=== PATIENT | male | born 1995 | race Caucasian/White ===

== ENCOUNTER 2024-02-20 08:49 | Outpatient (AMB) | payer OTHER, SELFPAY ==
--- NOTE | 2024-02-20 08:50 | MHC.OFFWIV ---
Intake Vital Signs 02/20/24 08:51 Height 6 ft 1 in Weight 200 lb BMI 26.4 BP 132/84 Blood Pressure Location Rt brachial Position Sitting Pulse 70 Pulse Source Pulse Oximeter Temp 97.7 F Temp Source Temporal Artery Scan Pulse Oximetry (%) 99 Oxygen Delivery Method Room Air Intake Visit Reasons: EP Asthma Intake Note: pt c/o asthma exacerbation. Ongoing for roughly 2 weeks Patient Tobacco Use Status: Former Tobacco user Allergies cat dander Allergy (Intermediate, Verified 02/20/24 08:55) Itchy Eyes Do you need a note to return to daycare/school/sports/work: Yes HPI HPI Comments History of Present Illness Details This is a 28-year-old male who presented to the walk-in clinic complaining of shortness of breath in the morning. Patient states this has been going on for the past 1-2 weeks. He states this typically happens in the summer with the extreme heat and typically he will utilize his rescue inhaler with significant improvement; however, he believes he left his inhaler in [place] back in September so he has been without his inhaler since then. He states he feels slightly short of breath when he wakes up in the morning; however, he feels okay during the day. He denies any cough or fever/chills. He denies any wheezing. Patient states he is here for a refill on his albuterol inhaler. [facility] Social History Patient Tobacco Use Status: Former Tobacco user Review of Systems Const All systems reviewed & are unremarkable except as noted in HPI and below Reports no additional complaints Eyes Reports no additional complaints ENT Reports no additional complaints Card Reports no additional complaints Resp Reports no additional complaints GI Reports no additional complaints Reports no additional complaints Musc Reports no additional complaints Skin/Breast Reports system reviewed and no additional complaints, except as documented Neuro Reports no additional complaints Psych Reports no additional complaints Endo Reports no additional complaints Juan/Lymph Reports no additional complaints Aller/Immun Reports no additional complaints Physical Exam Const Other: Vital signs reviewed. Constitutional: Non-toxic appearing. No acute distress. Well-developed and well-nourished. HEENT: Normocephalic and atraumatic. Skin: Warm and dry. No rashes or lesions noted. Neck: Full and painless range of motion. No cervical lymphadenopathy. Cardio: Regular rate and rhythm. No murmurs, gallops, or rubs. No lower extremity edema. No JVD. Pulmonary: No respiratory distress. No accessory muscle usage. Clear to auscultation bilaterally without wheezing, crackles, or rhonchi. Gastrointestinal: Soft, nontender, and nondistended in all 4 quadrants. Musculoskeletal: Normal range of motion in joints throughout the body. No deformity or other signs of injury. Neuro: Alert and oriented x4. Cranial nerves 2-12 grossly intact. No focal deficits appreciated. Psych: Normal mood and affect. Assessment & Plan Assessment & Plan (1) Mild intermittent asthma in adult without complication: Code(s): J45.20 - Mild intermittent asthma, uncomplicated Plan: This is a 28-year-old male with past medical history significant for mild intermittent asthma who presented to the walk-in clinic requesting a refill on his albuterol inhaler. He states he he left his inhaler in [place] back in September so he has been without it since then. He has been waking up with mild shortness of breath and typically his albuterol inhaler would fix this. He denies any cough or fever/chills. He has no expiratory wheezing on physical examination to suggest acute asthma exacerbation. His vital signs are stable and he is maintaining oxygen saturations on room air. Patient was given a refill of his albuterol inhaler. He was instructed to follow up with his primary care physician for further refills. He was advised to follow-up here or proceed to the emergency room if he were to develop worsening shortness of breath, cough, fever/chills, or wheezing. Patient verbalizes understanding and he is in agreement with the plan. Medications: New albuterol sulfate 90 mcg/actuation 1 inh inhalation QID PRN 8.5 grams 0RF shortness of breath or wheezing inhalational spacing device (Aerochamber MV spacer) As directed 10 ea 0RF Coding Level of Care Code Est Pt Level 3 (55199) Diagnoses Mild intermittent asthma in adult without complication J45.20
[2024-02-20 08:51] VITALS: BP 132/84; PULSE 70; TEMP 36.5; O2SAT 99; BMI 26.4
== END 2024-02-20 09:36 | disposition home or self-care (01) ==
PROVIDERS: PCP Internal Medicine; Visit Provider Physician Assistant Medical
DX: J45.20 Mild intermittent asthma, uncomplicated (principal)
CPT/HCPCS: 99213

== ENCOUNTER 2025-05-03 14:15 | Outpatient (REF) | payer OTHER, SELFPAY ==
[2025-05-03 18:05] LABS: MANUAL DIFF FLAG NO
[2025-05-03 18:25] LABS: Appearance Urine Cloudy; Glucose Urine UA Negative (Negative); PH 8.0 (5.0-9.0); Specific Gravity - Urine 1.020 (1.005-1.025)
[2025-05-03 18:34] LABS: Hematocrit 44.9 % (42.0-52.0); Hemoglobin 15.6 g/dl (14.0-18.0); Imm Gran Abs Auto 0.02 X10*3/uL (0.00-0.03); Imm Gran Pct Auto 0.4 % (0.0-0.4); Lymphocytes Absolute Auto 1.9 X10*3/uL (1.2-4.9); Mean Corpuscular HGB Conc 34.7 g/dl (31.0-36.0); Mean Corpuscular Hemoglobin 30.5 pg (27.0-33.0); Mean Corpuscular Volume 87.7 fL (80.0-98.0); NRBC Abs Auto 0.000 X10*3/uL (0.0-0.012); NRBC Pct Auto 0.0 /100WBC (0.0-0.2); Platelet Count 239 X10*3/uL (160-400); Red Blood Count 5.12 X10*6/uL (4.60-5.80); White Blood Count 5.7 X10*3/uL (4.8-10.8)
[2025-05-03 18:39] LABS: Alanine Aminotransferase 21 U/L (0-40); Albumin Level 4.6 g/dL (3.5-5.0); Alkaline Phosphatase 57 U/L (39-117); Anion Gap 9 (12-20); Aspartate Amino Transferase 32 U/L (5-37); Blood Urea Nitrogen 10 mg/dL (9-16); Calcium 8.8 mg/dL (8.4-10.2); Carbon Dioxide 28 mmol/L (22-29); Chloride 107 mmol/L (96-108); Cholesterol 139 mg/dL (<200); Estimated Glomerular Filt Rate > 60; HDL Cholesterol 47 mg/dL (>40); Potassium 3.4 mmol/L (3.3-5.1); Sodium 141 mmol/L (135-145); Total Protein 7.0 g/dL (6.5-8.0); Triglycerides 122 mg/dL (<150)
[2025-05-03 19:06] LABS: Folate 8.1 ng/mL (> or = 4.0); Vitamin B12 427 pg/mL (200-900)
[2025-05-04 03:35] LABS: HBS Num1 0.23 mIU/mL (0-7.99); HIV Num 1 0.07 S/CO (0.00-0.99); ~HepC Num1 0.06 S/CO (0.00-0.79); ~Hepatitis B Surface Antibody NONREACTIVE (Nonreactive); ~Hepatitis C Antibody Nonreactive (Nonreactive)
[2025-05-04 03:36] LABS: HBsAGNum1 0.65 S/CO (0.00-0.99); Hepatitis B Surface Antigen Negative (Negative)
[2025-05-04 05:33] LABS: Total Hemoglobin (HGBA1C) 3940.4464 umol/L
[2025-05-07 13:29] LABS: VITAMIN D (1,25 OH) D3 46 pg/mL; Vit D (1,25-Dihydroxy) Total 46 pg/mL (18-72); Vitamin D (1,25 OH) D2 <8 pg/mL
== END 2025-05-03 14:16 | disposition home or self-care (01) ==
LOC: HO.HKASLDS 14:15
PROVIDERS: PCP Internal Medicine; Visit Provider Student in an Organized Health Care Education/Training Program
DX: J45.20 Mild intermittent asthma, uncomplicated (principal); H61.23 Impacted cerumen, bilateral; L65.9 Nonscarring hair loss, unspecified; R07.9 Chest pain, unspecified; R00.2 Palpitations; F12.90 Cannabis use, unspecified, uncomplicated; Z87.891 Personal history of nicotine dependence; Z13.1 Encounter for screening for diabetes mellitus
CPT/HCPCS: 36415; 80053; 80061; 81003; 82607; 82652; 82746; 83036; 85025; 86706; 86803; 87340; 87389; 96127

== ENCOUNTER 2025-05-03 14:15 | Outpatient (AMB) | payer OTHER, SELFPAY ==
--- NOTE | 2025-05-03 14:28 | A.OFFPC_ITS ---
Vital Signs 05/03/25 14:35 Height 6 ft 0.05 in Weight 200 lb BMI 27.1 Blood Pressure Location Rt brachial Position Sitting Pulse 78 Pulse Source Pulse Oximeter Temp 98.4 F Temp Source Oral Pulse Oximetry (%) 98 Oxygen Delivery Method Room Air Intake Visit Reasons: NEW PATIENT -heart palpations Intake Note: During running he has been experiencing chest discomfort. Has hx of asthma Accompanied by: Self / Same As Patient Allergies cat dander Allergy (Intermediate, Verified 05/03/25 14:28) Itchy Eyes Tobacco use date assessed: 05/03/25 Dental Screening Dental Screen Date: 05/03/25 Did you have a dental visit in the last 12 months?: Yes HPI HPI Comments History of Present Illness Details Consent Patient was informed and verbally consented to the use of an ambient scribe for clinic note documentation during this visit. History of Present Illness The patient is a 29-year-old male presenting for a wellness visit and to establish care. Asthma: - The patient reports using an inhaler a s needed for asthma, with no hospitalizations for asthma attacks. - He experiences difficulty breathing at times, which is relieved by the inhaler. Ear wax accumulation: - Ear wax accumulation was noted during the examination, and ear drops were recommended to help clear it. Hair loss: - The patient reports hair thinning and a receding hairline, with a family history of hair changes but not significant hair loss. Exercise-induced palpitations: - The patient experiences palpitations a nd dizziness during intense physical exertion, which resolve with rest. - He maintains a regular exercise routin e but notes these symptoms only occur with high-intensity activities. Smoking history: - The patient has a history of smoking c igarettes and vaping, now limited to occasional use during social events. - He currently smokes marijuana but is a dvised against smoking due to asthma. Review of Systems - Respiratory: Reports dyspnea during as thma episodes. Denies chronic cough or wheezing. - Cardiovascular: Reports palpitations d uring intense exercise. Denies chest pain or syncope. - Neurological: Denies headaches or dizz iness outside of exercise-induced episodes. 10-point ROS reviewed and negative excep t as noted in HPI Past Medical History - Asthma, managed with as-needed inhaler use - Family history of hypertension and str ludy Health Maintenance - Comprehensive metabolic panel, lipid p jose, and STI screening planned for baseline health assessment - Advised to avoid smoking due to asthma and potential risk of COPD Physical Exam General: Well-appearing, in no acute distress. Vital signs: Within normal limits. HEENT: Normocephalic, atraumatic. PERRLA, EOMI. Conjunctiva clear, sclera anicteric. Oropharynx clear, mucous membranes moist. TMs intact bilaterally with ear wax noted. Debrox drops prescribed for ear wax removal. Neck: Supple, no lymphadenopathy, no thyromegaly, no JVD or carotid bruits. Cardiovascular: RRR, normal S1/S2, no murmurs, rubs, or gallops. Peripheral pulses 2+ and symmetric. No edema. Respiratory: Lungs clear to auscultation bilaterally, no wheezes, rales, or rhonchi. Normal effort. Abdomen: Soft, non-tender, non-distended. Normoactive bowel sounds. No hepatosplenomegaly, no masses. MSK: Full range of motion, no joint swelling or deformity. Normal gait. Skin: Warm, dry, intact. No rashes, lesions, or pallor. Neuro: Alert and oriented x3. Cranial nerves II-XII intact. Strength 5/5 through out. Sensation intact. Reflexes 2+ symmetric. Normal coordination and gait. Psych: Appropriate mood and affect. Normal judgment and insight. Plan 1. Asthma - Continue using inhaler as needed. Refi ll provided. 2. Ear Wax Accumulation - Prescribed ear drops to be used twice daily to clear ear wax. 3. Hair Loss - Consideration of minoxidil and finaste ride after lab results are reviewed. 4. Exercise-Induced Palpitations - Advised to monitor symptoms and focus on gradual increase in cardiovascular fitness. 5. Smoking History - Advised to avoid smoking, especially d ue to asthma and potential risk of COPD. Discussion Notes I discussed with the patient the importance of regular health check-ups and preventative screenings, including a comprehensive metabolic panel and STI screening. We talked about the risks associated with smoking, especially given his asthma, and I advised him to consider alternatives to smoking marijuana. We also discussed the potential use of minoxidil and finasteride for hair loss, pending lab results. Follow-up was planned in two weeks to review lab results and discuss further management. Patient Instructions - Use ear drops as prescribed to clear e ar wax. - Continue using inhaler as needed for a sthma symptoms. - Avoid smoking to reduce risk of COPD a nd manage asthma. - Follow up in two weeks to review lab r esults and discuss hair loss treatment options. Medical Decision Making The patient presented for a wellness visit to establish care. Given his asthma, a refill for his inhaler was provided. Ear wax accumulation was addressed with ear drops. Exercise-induced palpitations were discussed, and reassurance was provided. Smoking cessation was emphasized due to the risk of COPD. Hair loss treatment options were considered, pending lab results. The plan includes comprehensive lab work to establish a health baseline and follow-up in two weeks. Total time spent caring for the patient today was 30 minutes. This includes time spent before the visit reviewing the chart, time spent documenting, and time spent reviewing laboratory results, diagnostic imaging, medications, performing a medically necessary evaluation, counseling on diagnoses, care coordination, ordering appropriate tests, ordering appropriate medications. [facility], [facility] Family History (Updated 05/03/25 @ 14:29 by Miranda Clemens CMA) Mother No problems noted. Father No problems noted. Social History (Updated 05/03/25 @ 14:29 by Miranda Clemens [facility]) Housing: Condominium Alcohol intake: current Patient Tobacco Use Status: Current everyday Tobacco user service: No Current occupational status: employed Cognitive needs: No Hearing needs: No Vision needs: No Questionnaire PHQ-9 Over the last 2 weeks, how often have you been bothered by any of the following problems? 1. Little interest or pleasure in doing things: not at all 2. Feeling down, depressed, or hopeless: several days 3. Trouble falling or staying asleep, or sleeping too much: not at all 4. Feeling tired or having little energy: several days 5. Poor appetite or overeating: several days 6. Feeling bad about yourself - or that you are a failure or have let yourself or your family down: several days 7. Trouble concentrating on things, such as reading the newspaper or watching television: several days 8. Moving or speaking so slowly that other people could have noticed. Or the opposite - being so fidgety or restless that you have been moving around a lot more than usual: not at all 9. Thoughts that you would be better off or of hurting yourself in some way: not at all Total score: 5 Depression Screening Interpretation: Negative Depression Screening Done: Yes Source: Developed by Drs. Serg Noe, Filipe Miranda and colleagues, with an educational alek from [employer]. Thrive Questionnaire Date Thrive assessed: 05/03/25 I am a: Patient What is your living situation today?: I have a steady place to live Within the past 12 months, did the food you bought not last and you didn't have the money to get more?: Sometimes True Within the past 12 months, did you worry whether your food would run out before you got money to buy more?: Sometimes True Do you have trouble paying for medicines?: Yes Do you have trouble getting transportation to medical appointments?: No Do you have trouble paying your heating and electricity bill?: I choose not to answer this question Do you have trouble taking care of your child, family member or friend?: No Are you currently unemployed and looking for a job?: No Are you interested in more education?: Yes Please select the resources that you would like help with: Education Currently or been in a relationship where the following occur: No concerns reported THRIVE Score: 2 AUDIT C Alcohol Use Questionnaire (AUDIT-C) 1. How often do you have a drink containing alcohol?: 2-3 times a week 2. How many drinks containing alcohol do you have on a typical day when you are drinking?: 3 or 4 3. How often do you have six or more drinks on one occasion?: Monthly Total Score: 6 Score Reviewed/Action Taken: No EDISON-7 AMB Questionnaire EDISON-7 Date EDISON - 7 assessed: 05/03/25 Feeling nervous, anxious, or on edge: 1 = Several days Not being able to stop or control worryin = Several days Worrying too much about different things: 1 = Several days Trouble relaxin = More than half the days Being so restless that it is hard to sit still: 1 = Several days Becoming easily annoyed or irritable: 0 = Not at all Feeling afraid as if something awful might happen: 0 = Not at all Total EDISON-7 score (0-4 normal; 5-9 mild; 10-14 moderate; 15-21 severe): 6 Source: Developed by Dee Carlton Kurt Kroenke and colleagues, with an educational alek from [employer]. Physical exam (Primary Care) Vital Signs: Last Vital Signs Temp 98.4 F 05/03/25 14:35 Pulse 78 05/03/25 14:35 Pulse Ox 98 05/03/25 14:35 Oxygen Delivery Method Room Air 05/03/25 14:35 BMI result Body Mass Index 27.1 Tobacco/Smoking Status: Tobacco use Status Tobacco use date assessed 05/03/25 05/03/25 14:31 Patient Tobacco Use Status Current everyday Tobacco 05/03/25 14:41 PHQ-9: PHQ-9 Score PHQ-9: Total score 5 05/03/25 14:31 Depression Screening Interpretation: Negative Thrive Assessment: Date of Thrive Assessment Date Thrive assessed 05/03/25 05/03/25 14:31 Currently or been in a relationship where the following occur: No concerns reported Coding Level of Care Code New Pt Level 4 (58097) Diagnoses Mild intermittent asthma J45.20 Excessive cerumen in both ear canals H61.23 Hair loss L65.9 Smoking history Z87.891 Palpitations R00.2 Cannabis use disorder F12.90 Assessment & Plan Assessment & Plan (1) Mild intermittent asthma: Code(s): J45.20 - Mild intermittent asthma, uncomplicated (2) Excessive cerumen in both ear canals: Code(s): H61.23 - Impacted cerumen, bilateral (3) Hair loss: Code(s): L65.9 - Nonscarring hair loss, unspecified (4) Smoking history: Code(s): Z87.891 - Personal history of nicotine dependence (5) Palpitations: Code(s): R00.2 - Palpitations (6) Cannabis use disorder: Code(s): F12.90 - Cannabis use, unspecified, uncomplicated Plan Orders: Orders Complete Blood Count Auto Diff Today Z13.9 - Encounter for screening, unspecified Hepatitis B Surface Antibody Today Z13.9 - Encounter for screening, unspecified Lipid Panel Today Z13.9 - Encounter for screening, unspecified UA CC w/rflx Micro + Cult Today Z13.9 - Encounter for screening, unspecified Vitamin B12 and Folate Today Z13.9 - Encounter for screening, unspecified Comprehensive Met. Panel Today Z13.9 - Encounter for screening, unspecified Hemoglobin A1c Today Z13.9 - Encounter for screening, unspecified Hepatitis B Surface Antigen Today Z13.9 - Encounter for screening, unspecified Hepatitis C Antibody Today Z13.9 - Encounter for screening, unspecified HIV Ab/Ag Today Z13.9 - Encounter for screening, unspecified Vitamin D 1,25 dihydroxy Today Z13.9 - Encounter for screening, unspecified Medications: New carbamide peroxide 6.5% (Debrox) 5 drps otic (ears) Q12H 15 mL 0RF 4 days Refilled albuterol sulfate 90 mcg/actuation 1 inh inhalation QID PRN 8.5 grams 0RF shortness of breath or wheezing albuterol sulfate 90 mcg/actuation 1 inh inhalation QID PRN 8.5 grams 0RF shortness of breath or wheezing
[2025-05-03 14:35] VITALS: PULSE 78; TEMP 36.9; O2SAT 98; BMI 27.1
--- OUTSIDE RECORDS SUMMARY | 2025-05-03 17:16 | XMS_ITS | Clinical Summary ---
Author Organization [facility] Address [address] [place] [id number] Phone Care Team Providers Care Core Carrier Name Role Phone Nasim Gil MD Primary Care Provider Allergies No known active allergies Medications Medication Sig Dispense Quantity Refills Last Filled Start D ate End Date Status ALBUTEROL INHL Activ e Social History Tobacco Use Types Packs/Day Years Used Date Smoking Tobacco: Never Smokeless Tobacco: Current Alcohol Use Standard Drinks/Week Comments Yes 0 (1 standard drink = 0.6 oz pur e alcohol) every weekend Education Answer Date Recorded Are you interested in more education? Not on dennis e 11/15/2022 Are you concerned about learning? Not on file 11/15/2022 No 11/15/2022 No 11/15/2022 Digital Access Answer Date Recorded No 12/14/2022 No 12/14/2022 No 12/14/2022 Reliable internet access at home? Not on file 12/14/2022 Device with a working camera? Not on file Sex and Gender Information Value Date Recorded Sex Assigned at Male 09/07/2017 6:07 PM EST Legal Sex Male 5:58 PM EST Gender Identity Male 09/07/2017 6:07 PM EST Sexual Orientation Straight 09/07/2017 6: 07 PM EST Last Filed Vital Signs Vital Sign Reading Time Taken Comments Blood Pressure 123/78 09/07/2017 6:05 PM EST Pulse 59 09/07/2017 6:05 PM EST Temperature 36.7 C (98.1 F) 09/07/2017 6:05 PM EST Respiratory Rate 16 09/07/2017 6:05 PM EST Oxygen Saturation 97% 09/07/2017 6:05 PM EST Inhaled Oxygen Concentration - - Weight 77.1 kg (170 lb) 09/07/2017 6:05 PM EST Height 180.3 cm (5' 11 ) 09/07/2017 6:05 PM EST Body Mass Index 23.71 09/07/2017 6:05 PM EST Plan of Treatment Health Maintenance Due Date Last Done Comments Adult Td,Tdap Booster 1997 DEPRESSION SCREENING 2009 HEPATITIS A VACCINES (2 of 2 - 2-dose series) 08/16/2015 02/13/2015 HEPATITIS C SCREENING 2015 HIV ONE-TIME SCREENING (18-6 5 YEARS) 2015 SMOKING STATUS SCREENING (On ce After 26 Yrs) 2023 INFLUENZA VACCINE (#1) 2025 08/28/2017 COVID-19 VACCINE (2 - 2024-2 6 season) 2025 07/19/2021 MENINGOCOCCAL VACCINES (ACWY) Completed 02/20/2016 MENINGOCOCCAL VACCINES (B) Completed 03/18, 08/28/2017, 06/24/2017 HIB VACCINES Aged Out No longer eligi ble based on patient's age to complete this topic PNEUMOCOCCAL VACCINES (0-49 years) Aged Out No longer eligible b ased on patient's age to complete this topic Medical Devices Not on file Insurance [facility] [employer] POS [employer]MO POS [employer]MO POS [employer]MO POS [employer] HMO POS R[employer] HMO POS Care Teams Core Carrier Relationship Specialty Start Date End Date Nasim Gil MD [address] [place], [place] [address] [id number] PCP - General Pediatrics 09/07/17 Additional Source Comments The information contained in this document represents components of the legal health record. It is not the complete legal health record.[facility]
--- OUTSIDE RECORDS SUMMARY | 2025-05-03 17:16 | XMS_ITS | Clinical Summary ---
Author Organization [facility] Address [address] [place] [address] Phone Care Team Providers Care Billet Heater Name Role Phone Physician, No Pcp Primary Care Provider Unavaila ble Allergies No known active allergies Medical History Medical History Date Comments Asthma Social History Tobacco Use Types Packs/Day Years Used Date Smoking Tobacco: Never Smokeless Tobacco: Never Tobacco Cessation:Counseling Given: Not Answered Alcohol Use Standard Drinks/Week Comments Yes 0 (1 standard drink = 0.6 oz pur e alcohol) socially Sex and Gender Information Value Date Recorded Sex Assigned at Male 02/21/2024 12:15 PM EDT Legal Sex Male 11:35 AM EDT Gender Identity Male 02/21/2024 12:15 PM EDT Sexual Orientation Not on file Obstetrics History Last Filed Vital Signs Vital Sign Reading Time Taken Comments Blood Pressure 132/61 02/21/2024 1:21 PM EDT Pulse 63 02/21/2024 1:21 PM EDT Temperature 37.2 C (99 F) 02/21/2024 11:43 AM EDT Respiratory Rate 18 02/21/2024 1:21 PM EDT Oxygen Saturation 100% 02/21/2024 1:21 PM EDT Inhaled Oxygen Concentration - - Weight 90.7 kg (200 lb) 02/21/2024 11:43 AM EDT Height 182.9 cm (6') 02/21/2024 11:43 AM EDT Body Mass Index 27.12 02/21/2024 11:43 AM EDT Plan of Treatment Health Maintenance Due Date Last Done Comments Pneumococcal Vaccine: Pediatrics (0 to 5 Years) and At-Risk Patients (6 to 49 Years) (1 of 2 - PCV) 2016 Meningococcal B Vaccine (2 of 2 - Trumenba SCDM 2-dose series) 09/17/2018 03/18/2018 DTaP,Tdap,and Td Vaccines (7 - Td or Tdap) 05/29/2020 05/29/2010, 10/08/2001, 03/30/1999, Additional history exists HIV Screening 02/21/2024 Hepatitis C Screening 02/21/2024 Social Influencers of Health Screening 02/21/2024 Depression Screening 07/21/2024 COVID-19 Vaccine ( season) 2025 Influenza Vaccine (#1) 2025 3, 05/26/2012, 04/18/2011 RSV Immunization Adult Patients (1 - 1-dose 75+ series) 2072 Hepatitis B Vaccines Completed 03/28/1998, 1997, 1997 HIB Vaccines Completed 01/17/1999, 02/1998, 01/17/1998, Additional history exists IPV Vaccines Completed 10/08/2001, 09/20, 01/17/1998, Additional history exists MMR Vaccines Completed 10/08/2001, 10/18/1998 Varicella Vaccines Completed 09/21/2008, 10/18/1998 HPV Vaccines Completed 02/13/2015, 12/19, 12/29/2012 Hepatitis A Vaccines Completed 02/13/2015, 01/07/20 14 Meningococcal ACWY Vaccine Completed 02/20/2016, RSV Immunization Patients Under 20 months Aged Out No longer eligible based on patient's age to complete this topic Insurance [facility] Care Teams Billet Heater Relationship Specialty Start Date End Date Physician, No Pcp PCP - General 02/21/24
--- OUTSIDE RECORDS SUMMARY | 2025-05-03 17:16 | XMS_ITS | Encounter Summary ---
Author Organization [facility] Address [address] [place] [phone] Phone Care Team Providers Care Band Saw Operator Name Role Phone Nasim Gil MD Primary Care Provider [phone] Encounter Details Date Type Department Care Team (Late st Contact Info) Description 07/05/2013 Documentation [facility] Family Medicine [address] [place], [place] [phone] Family Medicine, Physician [address] [place], [place] [phone] Social History Tobacco Use Types Packs/Day Years Used Date Smoking Tobacco: Never Assessed Sex and Gender Information Value Date Recorded Sex Assigned at Not on file Legal Sex Male 4:57 PM EDT Gender Identity Not on file Sexual Orientation Not on file documented as of this encounter Plan of Treatment Not on file documented as of this encounter Visit Diagnoses Not on filedocumented in this encounter Care Teams Band Saw Operator Relationship Specialty Start Date End Date Nasim Gil MD [address] [facility] [place] [id number] PCP - General 02/28/17 10/28/22 documented as of this encounter
--- OUTSIDE RECORDS SUMMARY | 2025-05-03 17:16 | XMS_ITS | Encounter Summary ---
Author Organization [facility] Address [address] [place] [address] Phone Care Team Providers Care Quiller Machine Fixer Name Role Phone Nasim Gil MD Primary Care Provider [phone] Encounter Details Date Type Department Care Team (Late st Contact Info) Description 03/21/2010 Documentation [facility] Family Medicine [address] [place], [place] [phone] Family Medicine, Physician [address] [place], [place] [id number] Social History Tobacco Use Types Packs/Day Years [...] on filedocumented in this encounter Care Teams Quiller Machine Fixer Relationship Specialty Start Date End Date Nasim Gil MD [address] [facility] [place] [id number] PCP - General 02/28/17 10/28/22 documented as of this encounter
--- OUTSIDE RECORDS SUMMARY | 2025-05-03 17:16 | XMS_ITS | Encounter Summary ---
Author Organization [facility] Address [address] [place] [id number] Phone Care Team Providers Care Environmental Conflict Manager Name Role Phone Nasim Gil MD Primary Care Provider [phone] Encounter Details Date Type Department Care Team (Late st Contact Info) Description 06/11/2013 Documentation [facility] [place] [address] [place], [place] [id number] Family Medicine, Physician [address] [place], [place] [id number] Social History Tobacco Use Types Packs/Day Years [...] on filedocumented in this encounter Care Teams Environmental Conflict Manager Relationship Specialty Start Date End Date Nasim Gil MD [address] [facility] [place] [address] PCP - General 02/28/17 10/28/22 documented as of this encounter
--- OUTSIDE RECORDS SUMMARY | 2025-05-03 17:16 | XMS_ITS | Encounter Summary ---
Author Organization [facility] Address [address] [place] [id number] Phone Care Team Providers Care Manager Spanish Name Role Phone Nasim Gil MD Primary Care Provider [phone] Encounter Details Date Type Department Care Team (Late st Contact Info) Description 02/13/2015 Documentation [facility] [place] Family Medicine [address] [place], [place] [phone] Family Medicine, Physician [address], [place] [address] Social History Tobacco Use Types Packs/Day Years [...] on filedocumented in this encounter Care Teams Manager Spanish Relationship Specialty Start Date End Date Nasim Gil MD [address] [facility] [place] [address] PCP - General 02/28/17 10/28/22 documented as of this encounter
--- OUTSIDE RECORDS SUMMARY | 2025-05-03 17:16 | XMS_ITS | Clinical Summary ---
Author Organization [facility] Address [address] [place] [id number] Phone Care Team Providers Care Rehab Aid Name Role Phone Unavailable Primary Care Provider Unavailabl e Allergies No known active allergies Medications albuterol HFA 108 (90 Base) MCG/ACT inhaler Inhale 2 puffs every 6 (six) hours as needed for wheezing. Active Active Problems Problem Noted Date Diagnosed Date Mild intermittent asthma without complication Immunizations Immunization Administration Dates Next Due DTaP 5 10/08/2001, 9,03/28/1998,01/17,1997 HPV Vaccine 9 Valent 02/13/2015 HPV, Quadrivalent 01/06/2014,12/29/2012 Hep A, ped/adol 02/13/2015,01/06/2014 Hep B, ped/adol 03/28/1998,1997,1997 Hib (PRP-T) 01/17/1999, 8,01/17/1998,11/14 IPV 10/08/2001, 9,01/17/1998,11/14 Influenza Split 05/26/2012,04/18/2011 Influenza, injectable, quadr ivalent, preservative free 05/25/2013 MMR 10/08/2001,10/18/1998 Meningococcal B Trumenba 03/18/2018 Meningococcal Conj (Menactra) MCV4P 02/20/2016,1 07/29/2009 Tdap 05/29/2010 Varicella 09/21/2008,10/18/1998 Family History Relation Name Status Comments Brother Alive Brother: Asthma Father Father: Aortic regurgitation, Hypertension Maternal Grandmother Materna l grandmother: Diabetes mellitus Mother Mother: Allergi c rhinitis Thyroid deficiency, Mitral valve prolapse Other Family history of *Dental caries, No family history of *Sudden /[place] under 55, Family history of Diabetes mellitus, Family history of Hyperlipidemia, Family history of *Heart Disease, Family history of hip dysplasia, Family history of *CVA/Stroke, Family history of Deafness Sister 1 Alive Sister: Alive a nd well, Alive and well Sister 2 Alive Sister: Alive a nd well, Alive and well Social History Tobacco Use Types Packs/Day Years Used Date Smoking Tobacco: Some Days Smokeless Tobacco: Never Comments:rare cigarette with friends Alcohol Use Standard Drinks/Week Comments Yes 2 (1 standard drink = 0.6 oz pur e alcohol) Sex and Gender Information Value Date Recorded Sex Assigned at Not on file Legal Sex Male 4:57 PM EDT Gender Identity Not on file Sexual Orientation Not on file Last Filed Vital Signs Vital Sign Reading Time Taken Comments Blood Pressure 128/80 03/18/2018 3:26 PM EDT Pulse 61 03/18/2018 3:26 PM EDT Temperature 36.3 C (97.3 F) 01/27/2017 12:00 AM EDT Respiratory Rate - - Oxygen Saturation 97% 09/05/2011 12:00 AM EST Inhaled Oxygen Concentration - - Weight 78.6 kg (173 lb 3.2 oz) 03/18/2018 3:26 P M EDT Height 180.3 cm (5' 11 ) 03/18/2018 3:26 PM EDT Body Mass Index 24.16 03/18/2018 3:26 PM EDT Plan of Treatment Health Maintenance Due Date Last Done Comments Men B Vaccine (2 of 2 - Trumenba SCDM 2-dose series) 09/17/2018 03/18/2018 DTaP,Tdap,and Td Vaccines (7 - Td or Tdap) 05/29/2020 05/29/2010, 10/08/2001, 03/30/1999, Additional history exists Influenza Vaccines (#1) 2025 05/25/20 13, 05/26/2012, 04/18/2011 COVID-19 Vaccine ( season) 2025 Hepatitis B Vaccines Completed 03/28/1998, 1997, 1997 HIB Vaccines Completed 01/17/1999, 0 02/1998, 01/17/1998, Additional history exists IPV Vaccines Completed 10/08/2001, 09/20, 01/17/1998, Additional history exists MMR Vaccines Completed 10/08/2001, 10/18/1998 Varicella Vaccines Completed 09/21/2008, 10/18/1998 HPV Vaccines Completed 02/13/2015, 12/19, 12/29/2012 Hepatitis A Vaccines Completed 02/13/2015, 01/07/20 14 Meningococcal Vaccine Completed 02/20/2016, 010 Pneumococcal Vaccine Aged Out No long er eligible based on patient's age to complete this topic Insurance [facility]
--- OUTSIDE RECORDS SUMMARY | 2025-05-03 17:16 | XMS_ITS | Encounter Summary ---
Author Organization [facility] Address [address] [place] [id number] Phone Care Team Providers Care Enrollment Management Vice President Name Role Phone Nasim Gil MD Primary Care Provider [phone] Encounter Details Date Type Department Care Team (Late st Contact Info) Description 03/06/2017 Conversion Encounter [facility] [place] [address] [place] [address] Social History Tobacco Use Types Packs/Day Years Used Date Smoking Tobacco: Never Comments:Never smoker Sex and Gender Information Value Date Recorded Sex Assigned at Not on file Legal Sex Male 4:57 PM EDT Gender Identity Not on file Sexual Orientation Not on file documented as of this encounter Plan of Treatment Not on file documented as of this encounter Visit Diagnoses Not on filedocumented in this encounter Care Teams Enrollment Management Vice President Relationship Specialty Start Date End Date Nasim Gil MD [address] [place] [address] PCP - General 02/28/17 10/28/22 documented as of this encounter
== END 2025-05-03 15:14 | disposition home or self-care (01) ==
LOC: HO.HMCFMS 14:15
PROVIDERS: PCP Student in an Organized Health Care Education/Training Program; Visit Provider Student in an Organized Health Care Education/Training Program
DX: J45.20 Mild intermittent asthma, uncomplicated (principal); H61.23 Impacted cerumen, bilateral; L65.9 Nonscarring hair loss, unspecified; Z87.891 Personal history of nicotine dependence; R00.2 Palpitations; F12.90 Cannabis use, unspecified, uncomplicated

== ENCOUNTER 2025-06-03 15:45 | Outpatient (AMB) | payer OTHER, SELFPAY ==
[2025-06-03 15:46] VITALS: BP 146/90; PULSE 106; RESP 16; TEMP 36.6; O2SAT 96; BMI 28.3
--- NOTE | 2025-06-03 15:46 | A.OFFPC_ITS ---
Vital Signs 06/03/25 15:46 Height 6 ft 0.05 in Weight 209 lb 2 oz BMI 28.3 BP 146/90 H Blood Pressure Location Rt brachial Position Sitting Respiration 16 Pulse 106 H Pulse Source Pulse Oximeter Temp 97.8 F Temp Source Oral Pulse Oximetry (%) 96 Oxygen Delivery Method Room Air Intake Visit Reasons: pt r/s'd x2- 3 wk f/u Allergies cat dander Allergy (Intermediate, Verified 06/03/25 15:50) Itchy Eyes Tobacco use date assessed: 05/03/25 Dental Screening Dental Screen Date: 05/03/25 HPI HPI Comments History of Present Illness Details History of Present Illness The patient is a 29 year old male presenting for a follow-up visit to review laboratory results. This is the patient's second visit, with the first on the to establish care. Asthma: The patient has a history of asthma, which was discussed at his initial visit. An inhaler was prescribed, but the patient did not obtain it. Cerumen Impaction: The patient has a history of ear wax accumulation, for which ear drops were prescribed at the last visit. He reports he has not used the ear drops. Alopecia: The patient previously reported concerns about hair loss. Exercise-induced palpitations: The patient previously reported exercise-induced palpitations. Tobacco Use: The patient has a history of smoking. Medications: - The patient was previously prescribed an inhaler and ear drops but reports not having obtained or used them. Social History: - Substance Use: The patient has a histo ry of smoking. Diagnostic Results: - CBC: White blood cell count, red blood cell count, hemoglobin, hematocrit, and platelets are normal. - Comprehensive Metabolic Panel: Sodium and potassium are normal. - Renal Function: Normal. - Calcium: Normal. - Liver Function Tests: Normal. - Lipid Panel: Triglycerides, total chol esterol, LDL, and HDL are normal. - Vitamin B12: Normal. - Vitamin D: Normal. - Folate: Normal. - Urinalysis: Normal. - HIV Screen: Negative. - Hepatitis B Screen: Negative. - Hepatitis C Screen: Negative. - Glucose: Patient is not diabetic or pr ediabetic. Past Medical History - Asthma - Cerumen impaction - Alopecia - Exercise-induced palpitations - Tobacco use Health Maintenance - Recent laboratory studies to establish care were reviewed and found to be normal for CBC, CMP, lipids, vitamin B12, vitamin D, and folate. - Infectious disease screening for HIV, hepatitis B, and hepatitis C were negative. - Urinalysis was normal. - Recommended to return for follow-up in six months. [facility] Medical History (Updated 06/03/25 @ 16:10 by Orlando Wells MD) Male pattern baldness Family History (Updated 05/03/25 @ 14:29 by Miranda Clemens CMA) Mother No problems noted. Father No problems noted. Social History (Updated 05/03/25 @ 14:29 by Miranda Clemens CMA) Housing: Condominium Alcohol intake: current Patient Tobacco Use Status: Current everyday Tobacco user service: No Current occupational status: employed Cognitive needs: No Hearing needs: No Vision needs: No Questionnaire Thrive Questionnaire Date Thrive assessed: 05/03/25 EDISON-7 AMB Questionnaire EDISON-7 Date EDISON - 7 assessed: 05/03/25 Source: Developed by Drs. Serg Noe, Dee Fermin, Filipe Kwok and colleagues, with an educational alek from [employer]. Review of Systems Narrative Review of Systems - Constitutional: Denies current complaints. - HEENT: Reports history of cerumen accumulation. - Respiratory: Reports history of asthma. - Cardiovascular: Reports history of exercise-induced palpitations. - Integumentary: Reports history of hair loss. 10-point ROS reviewed and negative except as noted in HPI Physical exam (Primary Care) Vital Signs: Last Vital Signs Temp 97.8 F 06/03/25 15:46 Pulse 106 H 06/03/25 15:46 Resp 16 06/03/25 15:46 BP 146/90 H 06/03/25 15:46 Pulse Ox 96 06/03/25 15:46 Oxygen Delivery Method Room Air 06/03/25 15:46 BMI result Body Mass Index 28.3 Tobacco/Smoking Status: Tobacco use Status Tobacco use date assessed 05/03/25 06/03/25 15:53 Patient Tobacco Use Status Current everyday Tobacco 06/03/25 15:53 Thrive Assessment: Date of Thrive Assessment Date Thrive assessed 05/03/25 06/03/25 15:53 Narrative Physical Exam General: Well-appearing, in no acute distress. Vital signs: Within normal limits. HEENT: Normocephalic, atraumatic. PERRLA, EOMI. Conjunctiva clear, sclera anicteric. Oropharynx clear, mucous membranes moist. TMs intact bilaterally. Ear wax accumulation noted. Neck: Supple, no lymphadenopathy, no thyromegaly, no JVD or carotid bruits. Cardiovascular: RRR, normal S1/S2, no murmurs, rubs, or gallops. Peripheral pulses 2+ and symmetric. No edema. Exercise-induced palpitations reported. Respiratory: Lungs clear to auscultation bilaterally, no wheezes, rales, or rhonchi. Normal effort. History of asthma noted. Abdomen: Soft, non-tender, non-distended. Normoactive bowel sounds. No hepatosplenomegaly, no masses. MSK: Full range of motion, no joint swelling or deformity. Normal gait. Skin: Warm, dry, intact. No rashes, lesions, or pallor. Hair loss reported. Neuro: Alert and oriented x3. Cranial nerves II-XII intact. Strength 5/5 throughout. Sensation intact. Reflexes 2+ symmetric. Normal coordination and gait. Psych: Appropriate mood and affect. Normal judgment and insight. Coding Level of Care Code Est Pt Level 3 (14015) Diagnoses Mild intermittent asthma J45.20 Loss of hair L65.9 Excessive cerumen in both ear canals H61.23 Palpitations R00.2 Assessment & Plan Assessment & Plan (1) Mild intermittent asthma: Code(s): J45.20 - Mild intermittent asthma, uncomplicated (2) Loss of hair: Code(s): L65.9 - Nonscarring hair loss, unspecified (3) Excessive cerumen in both ear canals: Code(s): H61.23 - Impacted cerumen, bilateral (4) Palpitations: Code(s): R00.2 - Palpitations Plan Consent Patient was informed and verbally consented to the use of an ambient scribe for clinic note documentation during this visit. Plan 1. Laboratory Result Review - Comprehensive lab results, including a hemogram, metabolic panel, liver function, lipid panel, vitamin levels, urinalysis, and infectious disease screening for HIV, hepatitis B, and hepatitis C, were reviewed and are all within normal limits. - The patient was reassured of his excellent health status based on these findings. - Plan is to continue routine monitoring with a follow-up visit in six months. 2. Asthma - The patient has a reported history of asthma and was prescribed an inhaler at his initial visit but did not obtain it. - No active management changes were made during this visit. 3. Cerumen Impaction - The patient has a reported history of ear wax accumulation and was prescribed ear drops, which he has not used. - No active management changes were made during this visit. 4.hair loss - trial finesteride for hair loss - medication discussed with patient, he verbalizes understanding and agrees with plan Discussion Notes I reviewed the patient's comprehensive laboratory results with him. I explained that his complete blood count, metabolic panel, kidney and liver function, lipid panel, vitamin levels, and infectious disease screenings for HIV, Hepatitis B, and Hepatitis C were all normal. I reassured him that he is in good health based on these findings. We briefly touched upon his non-adherence with the previously prescribed inhaler and ear drops. I advised him to return for a follow-up visit in six months for continued health maintenance. Patient Instructions - All of your recent lab tests, including blood counts, kidney and liver tests, cholesterol, and screening for infections, came back normal. - Based on these results, you are in good health. - Please schedule a follow-up appointment to see me in six months. Medical Decision Making The patient is a 29-year-old male who presented for a scheduled follow-up to review results of baseline labs ordered at his initial visit to establish care. His prior concerns included asthma, cerumen accumulation, hair loss, exercise- induced palpitations, and a smoking history. The lab panel was comprehensive, intended to screen for common chronic diseases and assess for underlying causes of his reported symptoms. The results were all within normal limits, including a CBC, CMP, lipid panel, vitamin levels (B12, D, folate), and screens for HIV and viral hepatitis. These reassuring findings rule out anemia, metabolic derangements, diabetes, dyslipidemia, common vitamin deficiencies, and major infectious diseases as contributing factors. Given the completely normal workup, the plan is to is to provide reassurance and schedule a routine follow-up in six months for ongoing health maintenance. No further diagnostic testing or changes in management are indicated at this time. Total Time Statement 20 min Total time spent caring for the patient today includes pre-visit chart review, documentation, review of laboratory and diagnostic imaging results, medication reconciliation, medically necessary evaluation, counseling on diagnoses, care coordination, ordering appropriate tests and medications, review of tests performed by other providers, reporting test results to the patient, and communication with other healthcare providers. 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
== END 2025-06-03 16:08 | disposition home or self-care (01) ==
LOC: HO.HMCFMS 15:46
PROVIDERS: PCP Student in an Organized Health Care Education/Training Program; Visit Provider Student in an Organized Health Care Education/Training Program
DX: J45.20 Mild intermittent asthma, uncomplicated (principal); L65.9 Nonscarring hair loss, unspecified; H61.23 Impacted cerumen, bilateral; R00.2 Palpitations